=== PATIENT | female | born 1990 | race Hispanic/Latino ===

== ENCOUNTER 2016-12-30 19:42 | Emergency (ER) | payer MEDICAID ==
[2016-12-30 19:42] VITALS: BMI 28.9
[2016-12-30 20:07] VITALS: BP 108/76; PULSE 89; RESP 18; TEMP 98; O2SAT 94
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
== END 2016-12-30 23:27 | disposition home or self-care (01) ==
LOC: H.ER 19:42
DX: S02.2XXA Fracture of nasal bones, initial encounter for closed fracture (principal); Y04.0XXA Assault by unarmed brawl or fight, initial encounter; Y92.89 Other specified places as the place of occurrence of the external cause

== ENCOUNTER 2017-04-09 11:58 | Emergency (ER) | payer MEDICAID ==
[2017-04-09 11:58] VITALS: BMI 28.9
[2017-04-09 12:13] VITALS: RESP 16; TEMP 97.8
--- NOTE | 2017-04-09 12:25 | ED PDOC ---
HPI: Abdomen Time Seen by Provider: 04/09/17 12:11 Chief Complaint (Nursing): Abdominal Pain Additional Complaint(s): 26 y/o female presents to the emergency department with a complaint of a suprapubic abdominal pain that radiates to the back x2 weeks. Reports her periods are usually heavy with pain but symptoms now are worse. LMP was 2016. Has had IUD x 2 years. Denies fever, vomiting, vaginal bleeding or discharge, diarrhea, painful urination, or blood in urine. PMD: Dr. Cristóbal Vela MD Past Medical History Reviewed: Historical Data, Nursing Documentation, Vital Signs Vital Signs: Last Vital Signs Temp 97.8 F 04/09/17 12:10 Pulse 72 04/09/17 15:46 Resp 16 04/09/17 15:46 BP 110/70 04/09/17 15:46 Pulse Ox 98 04/09/17 15:46 - Medical History PMH: Asthma Denies: Chronic Kidney Disease - Surgical History Surgical History: Tonsillectomy - Family History Family History: States: Unknown Family Hx - Social History Current smoker - smoking cessation education provided: No Alcohol: Social Drugs: Denies - Immunization History Hx Tetanus Toxoid Vaccination: Yes Hx Influenza Vaccination: No Hx Pneumococcal Vaccination: No - Home Medications Home Medications: Ambulatory Orders Medication Instructions Recorded Albuterol HFA [Ventolin HFA 90 2 puff IH Q4H PRN 01/14/16 mcg/actuation (8 g)] Fluticasone Propionate [Flonase] 2 spr NS DAILY PRN #1 bottle 12/30/16 - Allergies Allergies/Adverse Reactions: Allergies Allergy/AdvReac Type Severity Reaction Status Date / Time peanut Allergy Verified 01/14/16 21:17 shrimp Allergy Verified 01/14/16 21:17 seafood Allergy Uncoded 11/15/15 18:57 Review of Systems ROS Statement: Except As Marked, All Systems Reviewed And Found Negative Constitutional: Negative for: Fever Cardiovascular: Negative for: Chest Pain Respiratory: Negative for: Cough, Shortness of Breath, SOB with Exertion Gastrointestinal: Positive for: Abdominal Pain (Suprapubic region). Negative for: Nausea, Vomiting, Diarrhea, Constipation Genitourinary Female: Positive for: Pelvic Pain. Negative for: Dysuria, Frequency, Incontinence, Hematuria, Vaginal Discharge, Vaginal Bleeding Musculoskeletal: Negative for: Back Pain Neurological: Negative for: Weakness, Numbness Physical Exam - Reviewed Nursing Documentation Reviewed: Yes Vital Signs Reviewed: Yes - Physical Exam Appears: Positive for: Well, Non-toxic, No Acute Distress Head Exam: Positive for: ATRAUMATIC, NORMAL INSPECTION, NORMOCEPHALIC Skin: Positive for: Normal Color, Warm, Dry Eye Exam: Positive for: Normal appearance, EOMI Neck: Positive for: Normal, Supple Cardiovascular/Chest: Positive for: Regular Rate, Rhythm. Negative for: Murmur Respiratory: Positive for: Wheezing (scant). Negative for: Accessory Muscle Use , Respiratory Distress Gastrointestinal/Abdominal: Positive for: Normal Exam, Soft. Negative for: Tenderness Back: Positive for: Normal Inspection. Negative for: L CVA Tenderness, R CVA Tenderness Extremity: Positive for: Normal ROM. Negative for: Pedal Edema Neurologic/Psych: Positive for: Alert, Oriented - Laboratory Results Result Diagrams: 04/09/17 13:05 04/09/17 13:05 - ECG O2 Sat by Pulse Oximetry: 99 (RA) Pulse Ox Interpretation: Normal Medical Decision Making Medical Decision Making: Time: 12:15 Initial impression: Evaluation for vs UTI vs kidney stones Initial plan: --CMP --Lipase --CBC w. diff --Toradol 30 mg IVP --Urine Preg --Urinalysis --Reevaluation Scribe Attestation: Documented by Abby Borjas, acting as a scribe for Alisha Thompson MD. Provider Scribe Attestation: All medical record entries made by the Scribe were at my direction and personally dictated by me. I have reviewed the chart and agree that the record accurately reflects my personal performance of the history, physical exam, medical decision making, and the department course for this patient. I have also personally directed, reviewed, and agree with the discharge instructions and disposition. 12:45 positive. Toradol discontinued. Bhcg added. Pelvic u/s ordered. UA negative for leukocytes, nitrates or blood 1:42 Labs grossly normal. Bhcg 1440. P:US 2:30PM U/s shows FINDINGS: UTERUS: Measures 9.0 x 3.3 x 4.7 cm. Normal in size and appearance. No fibroid or other mass lesion seen. ENDOMETRIUM: Measures 8 mm in diameter. The intrauterine device is not seen within the endometrial cavity. It is identified within the vagina at the time of this examination. CERVIX: No cervical abnormality identified. RIGHT OVARY: Measures 2.6 x 1.0 x 2.6 cm. No solid mass. Normal flow. LEFT OVARY: Measures 3.0 x 1.6 x 2.4 cm. No solid mass. Normal flow. FREE FLUID: No significant free fluid noted. OTHER FINDINGS: None. IMPRESSION: Intrauterine device located within the vagina. No intrauterine gestation identified. Otherwise unremarkable examination. Please note that ectopic gestation cannot be ruled out on the basis of this examination, in the absence of an intrauterine gestational sac. I spoke to Dr. Martins, hemstitcher controls engineer. He came to ED and examined patient. He was unable to locate the IUD or string of IUD. He agreed that abdomen is soft NT/ ND. Patient's photographic printer Dr. Frazier aware. Dr. Martins requesting that patient return on Wednesday (2 days) for repeat bhcg and ultrasound. Patient is aware that IUD is not currently removed, and that IUP is not confirmed and that she could be suffering from ectopic . She understands that she needs to return on wednesday and earlier with any worsening symptoms. Disposition - Clinical Impression Clinical Impression: Abdominal pain during , Abnormal US, IUD migration - Disposition Referrals: Willem Frazier [Staff Provider] - Disposition: Routine/Home Disposition Time: 15:33 Condition: GOOD Additional Instructions: Your ultrasound does not confirm that the is growing in the uterus and could be an ectopic . You need to return immediately to the ED with any worsening pain, with any bleeding, or any worsening symptoms. You need to take your IUD removed. You need to return on wednesday for repeat blood work and follow-up with Dr. Frazier next week. Forms: [employer] (Kyrgyz), [facility] ED School/Work Excuse
[2017-04-09] MEDS ORDERED: Albuterol-Ipratrop 3 mg / 0.5 (3 ml) UD INH STA (12:44)
[2017-04-09 13:10] LABS: BASO % 0.6 % (0.0-2.0); EOS # 0.2 K/uL (0.0-0.7); EOS % 2.8 % (0.0-4.0); HEMATOCRIT 41.9 % (34.0-47.0); LYMPH # 1.4 K/uL (1.0-4.3); LYMPH % 24.8 % (20.0-40.0); MEAN CELL VOLUME 93.3 fl (81.0-99.0); MEAN CORPUSCULAR HGB CONC 33.2 g/dL (33.0-37.0); MEAN PLATELET VOLUME 9.5 fl (7.2-11.7); MONO # 0.4 K/uL (0.0-0.8); MONO % 7.1 % (0.0-10.0); NEUT # 3.6 K/uL (1.8-7.0); NEUT % 64.7 % (50.0-75.0); RED CELL DISTRIBUTION WIDTH 13.4 % (11.5-14.5); WHITE BLOOD COUNT 5.5 K/uL (4.8-10.8)
[2017-04-09 13:23] LABS: ALB/GLOB RATIO 1.6 (1.0-2.1); ALKALINE PHOSPHATASE 57 U/L (38-126); ALT/SGPT 36 U/L (9-52); AST/SGOT 23 U/L (14-36); BLOOD UREA NITROGEN 11 mg/dl (7-17); CALCIUM 9.3 mg/dL (8.4-10.2); CARBON DIOXIDE 26 mmol/L (22-30); CHLORIDE 105 mmol/L (98-107); GFR AFRICAN-AMERICAN > 60; GLUCOSE,RANDOM 88 mg/dL (65-105); LIPASE 98 U/L (23-300); POTASSIUM 3.9 MMOL/L (3.6-5.0); SODIUM 139 mmol/l (132-148); TOTAL PROTEIN 6.5 G/DL (6.3-8.2)
[2017-04-09 15:47] VITALS: BP 110/70; PULSE 72
--- NOTE | 2017-04-09 16:46 | CP.PCM.CON ---
History of Present Illness - History of Present Illness History of Present Illness: 26yo LMP March 07 c/o abd pain x 2 w...midline non-radiating. No meds taken. Sometimes she feels pain in back. Past Patient History - Infectious Disease Hx of Infectious Diseases: None (POBGYNH: x 1(FT); C/S x [address] Martins...No STD...Her OBGYN : Dr Frazier - last seen 4-5m ago...IUD/PARAGARD place 2013) - Past Medical History & Family History Past Medical History?: Yes - Past Social History Alcohol: Social Drugs: Denies - CARDIAC Hx Cardiac Disorders: No - PULMONARY Hx Asthma: Yes - NEUROLOGICAL Hx Neurological Disorder: No - HEENT Hx HEENT Problems: No - RENAL Hx Chronic Kidney Disease: No - ENDOCRINE/METABOLIC Hx Endocrine Disorders: No - HEMATOLOGICAL/ONCOLOGICAL Hx Blood Disorders: No - INTEGUMENTARY Hx Dermatological Problems: No - MUSCULOSKELETAL/RHEUMATOLOGICAL Hx Musculoskeletal Disorders: No - GASTROINTESTINAL Hx Gastrointestinal Disorders: No - GENITOURINARY/GYNECOLOGICAL Hx Genitourinary Disorders: No - PSYCHIATRIC Hx Psychophysiologic Disorder: No - SURGICAL HISTORY Hx Tonsillectomy: Yes Other/Comment: C/S - ANESTHESIA Hx Anesthesia: Yes Hx Anesthesia Reactions: No Hx Malignant Hyperthermia: No Meds Allergies/Adverse Reactions: Allergies Allergy/AdvReac Type Severity Reaction Status Date / Time peanut Allergy Verified 01/14/16 21:17 shrimp Allergy Verified 01/14/16 21:17 seafood Allergy Uncoded 11/15/15 18:57 Physical Exam - Constitutional Appears: Non-toxic - GI/Abdominal Exam GI & Abdominal Exam: Normal Bowel Sounds, Soft. absent: Guarding, Rebound, Rigid, Tenderness - Exam External exam: NORMAL EXTERNAL EXAM Speculum exam: NORMAL SPECULUM EXAM Bimanual exam: NORMAL BIMANUAL EXAM Additional comments: Cervix closed no string noted Results - Vital Signs Recent Vital Signs: Last Vital Signs Temp 97.8 F 04/09/17 12:10 Pulse 72 04/09/17 15:46 Resp 16 04/09/17 15:46 BP 110/70 04/09/17 15:46 Pulse Ox 98 04/09/17 15:46 - Labs Result Diagrams: 04/09/17 13:05 04/09/17 13:05 Labs: Laboratory Results - last 24 hr 04/09/17 04/09/17 13:05 13:05 WBC 5.5 RBC 4.49 Hgb 13.9 Hct 41.9 MCV 93.3 MCH 31.0 MCHC 33.2 RDW 13.4 Plt Count 190 MPV 9.5 Neut % (Auto) 64.7 Lymph % (Auto) 24.8 [place] % (Auto) 7.1 Eos % (Auto) 2.8 Baso % (Auto) 0.6 Neut # 3.6 Lymph # 1.4 [place] # 0.4 Eos # 0.2 Baso # 0.0 Sodium 139 Potassium 3.9 Chloride 105 Carbon Dioxide 26 Anion Gap 11 BUN 11 Creatinine 0.7 Est GFR ( Amer) > 60 Est GFR (Non-Af Amer) > 60 Random Glucose 88 Calcium 9.3 Total Bilirubin 1.0 AST 23 ALT 36 Alkaline Phosphatase 57 Total Protein 6.5 Albumin 4.0 Globulin 2.6 Albumin/Globulin Ratio 1.6 Lipase 98 Beta HCG, Quant 1440.90 - Impressions Impression: Sono IUD in place; no IUP Assessment & Plan - Assessment and Plan (Free Text) Assessment: Early preg/abd pain (not acute abdomen) IUD in place Plan: Condition explained to pt. She understands early preg, possible ectopic and its risks/complications. She will come back to ER in 2-3d fro repeat BHCG/ sono. If she has more abd pain/VB to come back to ER. Also, follow up with Dr Frazier next week. He was contacted and notified - Date & Time Date: 04/09/17 Time: 15:30
--- NOTE | 2017-04-09 17:15 | US ---
HISTORY: , cramping COMPARISON: None available. TECHNIQUE: Transabdominal only FINDINGS: UTERUS: Measures 9.0 x 3.3 x 4.7 cm. Normal in size and appearance. No fibroid or other mass lesion seen. ENDOMETRIUM: Measures 8 mm in diameter. The intrauterine device is not seen within the endometrial cavity. It is identified within the vagina at the time of this examination. CERVIX: No cervical abnormality identified. RIGHT OVARY: Measures 2.6 x 1.0 x 2.6 cm. No solid mass. Normal flow. LEFT OVARY: Measures 3.0 x 1.6 x 2.4 cm. No solid mass. Normal flow. FREE FLUID: No significant free fluid noted. OTHER FINDINGS: None. IMPRESSION: Intrauterine device located within the vagina. No intrauterine gestation identified. Otherwise unremarkable examination. Please note that ectopic gestation cannot be ruled out on the basis of this examination, in the absence of an intrauterine gestational sac.
[2017-04-09 17:34] VITALS: O2SAT 99
== END 2017-04-09 15:47 | disposition home or self-care (01) ==
LOC: H.ER 11:58
DX: O26.90 Pregnancy related conditions, unspecified, unspecified trimester (principal); R10.2 Pelvic and perineal pain; Z97.5 Presence of (intrauterine) contraceptive device; J45.909 Unspecified asthma, uncomplicated

== ENCOUNTER 2017-04-11 13:10 | Emergency (ER) | payer MEDICAID ==
[2017-04-11 13:10] VITALS: BMI 28.9
[2017-04-11 13:17] VITALS: BP 119/77; PULSE 89; RESP 16; TEMP 98; O2SAT 99
--- NOTE | 2017-04-11 13:32 | ED PDOC ---
HPI: Female Pain Time Seen by Provider: 04/11/17 13:22 Chief Complaint (Nursing): Female Genitourinary Chief Complaint (Provider): Repeat bloodwork, adominal cramping History Per: Patient History/Exam Limitations: no limitations Onset/Duration Of Symptoms: Days Additional Complaint(s): The patient is a 26yo female, presents to the ED for repeat labs after being informed to return for follow up 2 days prior. Patient was seen in this facility 2 days ago with complaints of abdominal cramping; she reports she has had an IUD for the past 2 years and that her periods are usually heavy. Patient' s LMP was . Patient currently states her cramping has improved and denies any bleeding. She offers no additional medical complaints. Abnormal Vaginal Bleeding: No Past Medical History Reviewed: Historical Data, Nursing Documentation, Vital Signs Vital Signs: Last Vital Signs Temp 98 F 04/11/17 13:14 Pulse 89 04/11/17 13:14 Resp 16 04/11/17 13:14 BP 119/77 04/11/17 13:14 Pulse Ox 99 04/11/17 13:14 - Medical History PMH: Asthma Denies: Chronic Kidney Disease - Surgical History Surgical History: Tonsillectomy - Family History Family History: States: Unknown Family Hx - Immunization History Hx Tetanus Toxoid Vaccination: Yes Hx Influenza Vaccination: No Hx Pneumococcal Vaccination: No - Home Medications Home Medications: Ambulatory Orders Medication Instructions Recorded Albuterol HFA [Ventolin HFA 90 2 puff IH Q4H PRN 01/14/16 mcg/actuation (8 g)] Fluticasone Propionate [Flonase] 2 spr NS DAILY PRN #1 bottle 12/30/16 - Allergies Allergies/Adverse Reactions: Allergies Allergy/AdvReac Type Severity Reaction Status Date / Time peanut Allergy Verified 01/14/16 21:17 shrimp Allergy Verified 01/14/16 21:17 seafood Allergy Uncoded 11/15/15 18:57 Review of Systems ROS Statement: Except As Marked, All Systems Reviewed And Found Negative Gastrointestinal: Positive for: Abdominal Pain (decreased cramping compared to prior) Genitourinary Female: Negative for: Vaginal Bleeding Physical Exam - Reviewed Nursing Documentation Reviewed: Yes Vital Signs Reviewed: Yes - Physical Exam Appears: Positive for: Well, Non-toxic, No Acute Distress Head Exam: Positive for: ATRAUMATIC, NORMAL INSPECTION, NORMOCEPHALIC Skin: Positive for: Normal Color, Warm, DRY Eye Exam: Positive for: Normal appearance Neck: Positive for: Normal, Supple Cardiovascular/Chest: Positive for: Regular Rate, Rhythm Respiratory: Positive for: Normal Breath Sounds. Negative for: Respiratory Distress Gastrointestinal/Abdominal: Positive for: Normal Exam, Soft. Negative for: Tenderness Neurologic/Psych: Positive for: Alert, Oriented. Negative for: Motor/Sensory Deficits - ECG O2 Sat by Pulse Oximetry: 99 (RA) Pulse Ox Interpretation: Normal Medical Decision Making Medical Decision Making: Time: 1330 Impression: Possible ectopic Plan: -- US OB -- Beta HCG Reassess Time: 1500 Patient to be signed to Dr. Steel pending US OB report. Scribe Attestation: Documented by Candi Preciado acting as a scribe for Altagracia Mathew MD. Provider Attestation: All medical record entries made by the Scribe were at my direction and personally dictated by me. I have reviewed the chart and agree that the record accurately reflects my personal performance of the history, physical exam, medical decision making, and the department course for this patient. I have also personally directed, reviewed, and agree with the discharge instructions and disposition. Disposition - Clinical Impression Clinical Impression: Abdominal pain affecting - Patient ED Disposition Is Patient to be Admitted: Transfer of Care - Disposition Referrals: [facility] [Outside] Disposition: Transfer of Care Disposition Time: 15:00 Condition: STABLE Additional Instructions: Return for worsening. Return for further evaluation within 24 hours. Follow up with your PCP in 2-3 days. Instructions: Ectopic (ED), Abdominal Pain in (ED), Against Medical Advice (ED) Forms: [employer] (Estonian) Patient Signed Over To: Jake Steel Handoff Comments: Pending US OB.
--- NOTE | 2017-04-11 15:18 | ED PDOC ---
- ECG O2 Sat by Pulse Oximetry: 99 (RA) Pulse Ox Interpretation: Normal Medical Decision Making Medical Decision Making: Receiving sign out: Patient signed out to me by Dr. Mathew at 1500 pending US OB. Pt refused to wait for US report and left AMA. Scribe Attestation: Documented by Candi Preciado acting as a scribe for Jake Severino MD. Provider Attestation: All medical record entries made by the Scribe were at my direction and personally dictated by me. I have reviewed the chart and agree that the record accurately reflects my personal performance of the history, physical exam, medical decision making, and the department course for this patient. I have also personally directed, reviewed, and agree with the discharge instructions and disposition. Disposition Doctor Will See Patient In The: Office Counseled Patient/Family Regarding: Studies Performed, Diagnosis, Need For Followup - Clinical Impression Clinical Impression: Abdominal pain affecting , Left against medical advice - POA Present On Arrival: None - Disposition Referrals: [facility] [Outside] Disposition: AGAINST MEDICAL ADVICE Disposition Time: 16:46 Condition: GOOD Additional Instructions: Return for worsening. Return for further evaluation within 24 hours. Follow up with your PCP in 2-3 days. Instructions: Ectopic (ED), Abdominal Pain in (ED), Against Medical Advice (ED) Forms: [employer] (E[place]ian) Progress Note - Review of Symptoms Events since last encounter: Time: 1500 US Report on 04/09/17 at 17:13 Impression: Intrauterine device located within the vagina. No intrauterine gestation identified. Otherwise unremarkable examination. Please note that ectopic gestation cannot be ruled out on the basis of this examination, in the absence of an intrauterine gestational sac. Time: 1640 Patient resting in room, pending US report. Against Medical Advice - AMA Patient Left Against Medical Advice: The patient declines admission to the hospital and wishes to leave the Emergency Department. This action is against my medical advice. This decision was made with informed refusal. The patient was told that admission to the hospital is necessary. Explanation of the reasons why were discussed. The risks of leaving were explained to the patient and include, but are not limited to, worsening of known or currently unknown conditions, permanent disability and from undiagnosed or untreated conditions. The patient has the capacity to make this informed decision and understands my explanation of the current medical problem and risks of leaving. The patient voluntarily accepts these risks and signed an AMA form documenting our conversation. The patient was given the opportunity to ask questions and reconsider. The patient was encouraged to return to the Emergency Department at any time for further care.
--- NOTE | 2017-04-11 17:46 | US ---
Pelvic ultrasound dated . History: Abdominal pain. Vaginal bleeding. Transabdominal/transvaginal sonographic evaluation of the pelvis performed. Comparison made with prior study 04/09/2017. Findings: The uterus is anteverted measuring approximate 11.1 x 4.0 x 6.3 cm. Small nabothian cyst present. Questionable IUD within the cervical region. There is a small anechoic structure within the endometrial canal that could represent early gestational sac which measures approximately 0.55 cm and is at of range to assess age. Questionable tiny yolk sac measuring 0.07 cm. . . No evidence of pole nor cardiac activity. Recommend followup serial serum beta HCG and serial ultrasound to assess for development of viable gestation. Right ovary measures 3.0 x 2.0 x 3.0 cm. Left ovary measures 3.4 x 2.0 x 3.0 cm. Both ovaries exhibit arterial flow Impression: Findings may represent very early intrauterine gestation ;, too early to calculate age. Recommend followup serial serum beta HCG and serial ultrasound to assess for development of viable intrauterine gestation. Questionable intrauterine device on within the cervical region.
== END 2017-04-11 17:03 | disposition left against medical advice (07) ==
LOC: H.ER 13:10
DX: O26.899 Other specified pregnancy related conditions, unspecified trimester (principal)